=== PATIENT | female | born 1985 | race Caucasian/White ===

== ENCOUNTER 2024-08-22 03:53 | Emergency (ER) | payer BC, OTHER ==
[2024-08-22] MEDS: Cephalexin 500 MG Cap PO ONE (04:16)
== END 2024-08-22 04:36 | disposition home or self-care (01) ==
LOC: JD.ED 03:53
DX: H10.33 Unspecified acute conjunctivitis, bilateral (principal); L03.211 Cellulitis of face; Z79.899 Other long term (current) drug therapy
CPT/HCPCS: 87070; 87077; 87186; 99283; A9270